=== PATIENT | female | born 1960 | race Caucasian/White ===

== ENCOUNTER 2021-11-06 15:27 | Outpatient (CLI) | payer MEDICARE, OTHER | END 2021-11-06 15:28 | disposition home or self-care (01) | LOC: MADLABSP 15:27 | PROVIDERS: ATTEND Family Medicine | DX: N30.00 Acute cystitis without hematuria (principal) | CPT/HCPCS: 87086 ==

== ENCOUNTER 2021-11-24 12:13 | Outpatient (CLI) | payer MEDICARE, OTHER ==
[2021-11-24 12:30] LABS: Anion Gap 17 mmol/L (10-20); BUN (Urea Nitrogen) 22 mg/dL (9.8-20.1); Calc. Creatinine Clearance 0 mL/min (70-130); Calcium 10.2 mg/dL (7.8-10.44); Carbon Dioxide 26 mmol/L (23-31); Chloride 104 mmol/L (98-107); Estimated GFR 77; Glucose 165 mg/dL (80-115); Potassium 4.9 mmol/L (3.5-5.1); Sodium 142 mmol/L (136-145)
== END 2021-11-24 12:14 | disposition home or self-care (01) ==
LOC: MADLABBHPM 12:13
PROVIDERS: ATTEND Family Medicine
DX: N18.2 Chronic kidney disease, stage 2 (mild) (principal)
CPT/HCPCS: 80048